=== PATIENT | male | born 1970 | race African-American/Black ===

== ENCOUNTER 2017-05-14 23:41 | Emergency (ER) | payer OTHER ==
[2017-05-15] MEDS ORDERED: KETOROLAC TROMETHAMINE INJ/PF 30 MG/1 ML SDV IV ONE (03:16)
--- NOTE | 2017-05-15 03:22 | ER Document Report ---
HPI - HPI Pain Level: 5 Notes: Patient is a 46-year-old male who presents the ED complaining of left neck pain with radicular symptoms down the left upper extremity into his hand x4 days. Pt states that it started after he strained a muscle in his neck from turning inappropriately. Patient states that his discomfort is a soreness and feels like his muscle is tight in that area. Patient states that he has not lost any strength in his upper extremity. Patient states that standing does help his pain but lying down in certain positions make the pain worse. Patient also notices some added discomfort when he abduction his arm. PMH significant for type 2 DM. No procedures in his neck/back. + smoker. Denies any other elicit drug use. Denies any fever, BELLA, neck stiffness, URI, sore throat, cough, sob, dyspnea, cp, palp, syncope, calero, abd pain, n/v/d, or rash. - ROS Notes: REVIEW OF SYSTEMS: CONSTITUTIONAL : Denies fever, chills, or sweats. Denies recent illness. EENT: Denies eye, ear, throat, or mouth pain or symptoms. Denies nasal or sinus congestion or discharge. Denies throat, tongue, or mouth swelling or difficulty swallowing. CARDIOVASCULAR: Denies chest pain. Denies palpitations or racing or irregular heart beat. Denies ankle edema. RESPIRATORY: Denies cough, cold, or chest congestion. Denies shortness of breath, difficulty breathing, or wheezing. GASTROINTESTINAL: Denies abdominal pain or distention. Denies nausea, vomiting , or diarrhea. Denies blood in vomitus, stools, or per rectum. Denies black, tarry stools. Denies constipation. GENITOURINARY: Denies difficulty urinating, painful urination, burning, frequency, blood in urine, or discharge. MUSCULOSKELETAL: see hpi SKIN: Denies rash, lesions or sores. NEUROLOGICAL: see hpi. Denies confusion or altered mental status. Denies passing out or loss of consciousness. Denies dizziness or lightheadedness. Denies headache. Denies weakness or paralysis or loss of use of either side. Denies problems with gait or speech. ALL OTHER SYSTEMS REVIEWED AND NEGATIVE. Dictation was performed using [email or web address] voice recognition software - DERM Skin Color: Normal, [place] Past Medical History - Social History Smoking Status: Current Every Day Smoker Family History: Reviewed & Not Pertinent - Past Medical History Cardiac Medical History: Denies: Hx Congestive Heart Failure, Hx Heart Attack, Hx Hypertension Pulmonary Medical History: Reports: Hx Asthma Denies: Hx Bronchitis, Hx COPD, Hx Pneumonia, Hx Tuberculosis Neurological Medical History: Denies: Hx Seizures Endocrine Medical History: Reports: Hx Diabetes Mellitus Type 1, Hx Diabetes Mellitus Type 2 Renal/ Medical History: Denies: Hx Benign Prostatic Hyperplasia, Hx End Stage Renal Disease, Hx Kidney Stones, Hx Peritoneal Dialysis GI Medical History: Denies: Hx Cirrhosis, Hx Gastroesophageal Reflux Disease, Hx Ulcer Musculoskeltal Medical History: Denies Hx Arthritis, Denies Hx Multiple Sclerosis Psychiatric Medical History: Reports: Hx Depression Denies: Hx Bipolar Disorder, Hx Schizophrenia Past Surgical History: Reports: Hx Orthopedic Surgery - orthoscopic knee surgery - Immunizations Immunizations up to date: Yes Hx Diphtheria, Pertussis, Tetanus Vaccination: Yes - unk Vertical Provider Document - CONSTITUTIONAL Agree With Documented VS: Yes Notes: PHYSICAL EXAMINATION: GENERAL: Well-appearing, well-nourished and in no acute distress. HEAD: Atraumatic, normocephalic. EYES: Pupils equal round and reactive to light, extraocular movements intact, sclera anicteric, conjunctiva are normal. ENT: EAC clear b/l. TM's intact b/l without erythema, fluid, or perforation. Nares patent and without discharge. oropharynx clear without exudates. No tonsilar hypertrophy or erythema. Moist mucous membranes. No sinus tenderness. NECK: Normal range of motion, supple without lymphadenopathy. No rigidity/ meningismus. No midline tenderness. Spurling negative. + tenderness to the left trapezius mm. + trigger point. LUNGS: Breath sounds clear to auscultation bilaterally and equal. No wheezes rales or rhonchi. HEART: Regular rate and rhythm without murmurs, rubs, gallops. Musculoskeletal: Left UE: FROM to passive/active. Strength 5+/5. + tinel/ phalen left wrist. No bony tenderness. Extremities: No cyanosis, clubbing, or edema b/l. Peripheral pulses 2+. Capillary refill less than 3 seconds. NEUROLOGICAL: Cranial nerves grossly intact. Normal speech, normal gait. Normal sensory, motor exams PSYCH: Normal mood, normal affect. SKIN: Warm, Dry, normal turgor, no rashes or lesions noted. - INFECTION CONTROL TRAVEL OUTSIDE OF THE [place] IN LAST 30 DAYS: No - RESPIRATORY O2 Sat by Pulse Oximetry: 100 Course - Re-evaluation Re-evalutation: 05/15/17 03:20 Patient is an afebrile, well-hydrated, 46-year-old male who presents the ED with muscle spasming and trigger point to the left trapezius muscle along with probable mild carpal tunnel syndrome of the left wrist. Vitals are stable. PE otherwise unremarkable. No imaging warranted at this time based on H&P. Low suspicion for any fracture, meningitis, sepsis. Toradol 15 mg given IM today. I will send him home with a prescription for Voltaren gel, meloxicam, and baclofen to take as directed. Advised conservative measures for symptoms as reviewed discharge. Recheck with your PCM in 2-3 days. Return to the ED with any worsening/concerning symptoms otherwise as reviewed discharge. Consider consult with orthopedics and physical therapy as well. Patient is in agreement. - Vital Signs Vital signs: Temp Pulse Resp BP Pulse Ox 98.5 F 84 20 136/83 H 100 05/14/17 23:58 05/14/17 23:58 05/14/17 23:58 05/14/17 23:58 05/14/17 23:58 Discharge - Discharge Clinical Impression: Muscle spasm, Neuritis Condition: Stable Disposition: HOME, SELF-CARE Instructions: Ice & Elevation ([facility]), Ice Massage ([facility]), Warm Packs ([facility]), Neck Injury (Cervical Strain) ([facility]), Muscle Relaxers ([facility]) Additional Instructions: Ice Ice massage Tylenol/ibuprofen as needed Light stretches daily Strength exercises as able Moist heat and massage may help F/u with your PCP in 2-3 days for a recheck Consider consult(s) with Orthopedics/physical therapy for ongoing/worsening symptoms Return to the ED with any worsening symptoms and/or development of fever, headache, chest pain, palpitations, syncope, shortness of breath, trouble breathing, abdominal pain, n/v/d, blood in stool/urine, loss of control of bowel /bladder, urinary retention, muscle weakness/paralysis, saddle anesthesia, numbness/tingling, or other worsening symptoms that are concerning to you. Prescriptions: Baclofen [Baclofen 10 mg Tablet] 5 mg PO BID PRN #10 tablet PRN Reason: Diclofenac Sodium [Voltaren] 4 gm TP QID PRN #100 gel..gm. PRN Reason: Meloxicam 7.5 mg PO BID PRN #10 tablet PRN Reason: Forms: Elevated Blood Pressure, Smoking Cessation Education Referrals: [facility] [Provider Group] - Follow up as needed [facility] [Provider Group] - Follow up as needed
[2017-05-15 03:47] VITALS: BP 130/85
== END 2017-05-15 03:40 | disposition home or self-care (01) ==
LOC: ER 23:41
DX: M62.830 Muscle spasm of back (principal); M79.2 Neuralgia and neuritis, unspecified; M54.2 Cervicalgia; E11.9 Type 2 diabetes mellitus without complications; F17.200 Nicotine dependence, unspecified, uncomplicated; J45.909 Unspecified asthma, uncomplicated
CPT/HCPCS: 99283; 96374; J1885

== ENCOUNTER 2018-02-16 09:48 | Emergency (ER) | payer SELFPAY ==
[2018-02-16 09:57] VITALS: BP 138/82
[2018-02-16] MEDS ORDERED: IBUPROFEN 800 MG TABLET PO ONE (10:37)
--- NOTE | 2018-02-16 10:42 | ER Document Report ---
ED Extremity Problem, Upper - General Chief Complaint: Shoulder Pain Stated Complaint: LEFT ARM PAIN Time Seen by Provider: 02/16/18 10:04 Mode of Arrival: Ambulatory Information source: Patient Notes: 47-year-old male presents to ED for complaint of left shoulder pain. He states a couple weeks ago he just started hurting. He states he was starting to nod off and jerked causing pain to his left shoulder and upper back. He denies any injury. He denies any numbness or tingling. TRAVEL OUTSIDE OF THE [place] IN LAST 30 DAYS: No - HPI Patient complains to provider of: Shoulder - Left Onset: Other - Couple weeks Recent injury: No Where: Home, Indoors Quality of pain: Achy, Cramping Pain Level: 2 Exacerbated by: Movement, Exertion Relieved by: Rest, Positioning Similar symptoms previously: Yes Recently seen / treated by doctor: No - Related Data Allergies/Adverse Reactions: No Known Allergies Allergy (Verified 02/16/18 09:50) Past Medical History - General Information source: Patient - Social History Smoking Status: Never Smoker Cigarette use (# per day): No Chew tobacco use (# tins/day): No Smoking Education Provided: No Frequency of alcohol use: None Drug Abuse: Marijuana Family History: Reviewed & Not Pertinent Patient has suicidal ideation: No Patient has homicidal ideation: No - Past Medical History Cardiac Medical History: Reports: None Pulmonary Medical History: Reports: Hx Asthma EENT Medical History: Reports: None Neurological Medical History: Reports: None Endocrine Medical History: Reports: Hx Diabetes Mellitus Type 2 Renal/ Medical History: Reports: None GI Medical History: Reports: None Musculoskeltal Medical History: Reports Hx Arthritis, Reports Hx Musculoskeletal Deformity, Reports Hx Musculoskeletal Trauma Skin Medical History: Reports None Psychiatric Medical History: Reports: Hx Depression Traumatic Medical History: Reports: None Infectious Medical History: Reports: None Past Surgical History: Reports: Hx Orthopedic Surgery - orthoscopic knee surgery - Immunizations Immunizations up to date: No Hx Diphtheria, Pertussis, Tetanus Vaccination: No - unk Review of Systems - Review of Systems Constitutional: No symptoms reported EENT: No symptoms reported Cardiovascular: No symptoms reported Respiratory: No symptoms reported Gastrointestinal: No symptoms reported Genitourinary: No symptoms reported Male Genitourinary: No symptoms reported Musculoskeletal: Muscle pain, Muscle stiffness Skin: No symptoms reported Hematologic/Lymphatic: No symptoms reported Neurological/Psychological: No symptoms reported -: Yes All other systems reviewed and negative Physical Exam - Vital signs Vitals: Temp Pulse Resp BP Pulse Ox 97.9 F 73 20 138/82 H 100 02/16/18 09:55 02/16/18 09:55 02/16/18 09:55 02/16/18 09:55 02/16/18 09:55 Interpretation: Normal - General General appearance: Appears well, Alert - HEENT Head: Normocephalic, Atraumatic Eyes: Normal Pupils: PERRL - Respiratory Respiratory status: No respiratory distress Chest status: Nontender Breath sounds: Normal Chest palpation: Normal - Cardiovascular Rhythm: Regular Heart sounds: Normal auscultation Murmur: No - Abdominal Inspection: Normal Distension: No distension Bowel sounds: Normal Tenderness: Nontender Organomegaly: No organomegaly - Back Back: Normal, Nontender - Extremities General upper extremity: Normal inspection, Normal color, Normal ROM, Normal temperature General lower extremity: Normal inspection, Nontender, Normal color, Normal ROM , Normal temperature, Normal weight bearing. No: Augustine's sign Shoulder: Tender. No: Abrasion, Deformity, Dislocation, Ecchymosis, Instability , Laceration, Limited ROM - Neurological Neuro grossly intact: Yes Cognition: Normal Orientation: AAOx4 Kavita Coma Scale Eye Opening: Spontaneous Kavita Coma Scale Verbal: Oriented Kavita Coma Scale Motor: Obeys Commands [place] Coma Scale Total: 15 Speech: Normal Motor strength normal: LUE, RUE, LLE, RLE Sensory: Normal - Psychological Associated symptoms: Normal affect, Normal mood - Skin Skin Temperature: Warm Skin Moisture: Dry Skin Color: Normal Course - Re-evaluation Re-evalutation: 02/16/18 11:15 After performing a Medical Screening Examination, I estimate there is LOW risk for EXPANDING OR RUPTURED ABDOMINAL AORTIC ANEURYSM, CAUDA EQUINA SYNDROME, EPIDURAL MASS LESION, or HERNIATED DISK CAUSING SEVERE SPINAL STENOSIS, thus I consider the discharge disposition reasonable. I have reevaluated this patient multiple times and no significant life threatening changes are noted. The patient and I have discussed the diagnosis and risks, and we agree with discharging home and close follow-up. We also discussed returning to the Emergency Department immediately if new or worsening symptoms occur with the understanding that symptoms and presentations can change. We have discussed the symptoms which are most concerning (e.g., saddle anesthesia, urinary or bowel incontinence or retention, changing or worsening pain) that necessitate immediate return. - Vital Signs Vital signs: Temp Pulse Resp BP Pulse Ox 97.9 F 73 20 138/82 H 100 02/16/18 09:55 02/16/18 09:55 02/16/18 09:55 02/16/18 09:55 02/16/18 09:55 Discharge - Discharge Clinical Impression: Left shoulder pain Qualifiers: Chronicity: unspecified Qualified Code(s): M25.512 - Pain in left shoulder Condition: Stable Disposition: HOME, SELF-CARE Instructions: Family Physicians / Practices Additional Instructions: Myalagia (Muscle Pain) Myalgia is pain in the muscles. We use the word myalgia to describe muscle pain where there's no history of injury, no known muscle disease, and the muscles are normal to examination. Myalgias can be a symptom of an acute illness , such as influenza, hepatitis, or any viral illness, especially with fever. Sometimes the muscle pain comes before any other symptoms. Myalgia can also be an early symptom of inflammatory muscle disease, such as lupus. If myalgia is accompanied by an acute illness that explains the muscle pain , then no further testing needs to be done. When there's no clear reason for the pain, tests may be done to see if there's an inflammatory or other disease of the muscles. The usual treatment for myalgias is anti-inflammatory medication, such as ibuprofen. Muscle aches may be soothed with a heating pad or hot compress. If muscles remain painful for more than a few days, you'll need testing and followup. Return if a muscle becomes swollen, red, or severely painful. Arthralgia Arthralgia is pain in the joints. We use the word arthralgia to describe joint pain where there's no history of injury, no known joint disease, and the joints are normal to examination. Arthralgia can be a symptom of an acute illness, such as influenza, hepatitis, or serum sickness. Sometimes the joint pain comes before any other symptoms. Arthralgia can also be an early symptom of joint disease, such as rheumatoid arthritis or lupus. If arthralgia is accompanied by an acute illness that explains the joint pain, such as mononucleosis, no further testing needs to be done. When there's no clear reason for the pain, tests may be done to see if there's an inflammatory disease of the joints. The usual treatment is anti-inflammatory medication, such as ibuprofen. Joint aches can be soothed with a heating pad or hot compress. If joints remain painful more than a few days, you'll need testing and followup. Return if a joint becomes swollen, red, or severely painful. Anti-Inflammatory Medication You have received a prescription for an antiinflammatory agent. This is an excellent, safe drug for pain control. In addition, it has potent antiinflammatory effects which are beneficial, especially in the treatment of injuries, arthritis, or tendonitis. It's best to take this medicine with food. Persons with ulcer disease or allergy to aspirin should notify their physician of this before taking this drug. Take the medication exactly as prescribed. Don't take additional doses unless instructed to do so by your doctor. If you develop wheezing, shortness of breath, hives, faintness, stomach pain, vomiting, or dark black stools, return for re-evaluation at once. MUSCLE RELAXERS: Muscle relaxing medications are usually prescribed for acute muscle spasm or injury to the neck and back. They are often combined with antiinflammatory pain medication for increased relief. You may stop the muscle relaxer when the pain and stiffness have improved. Start the medication again if spasms recur. Muscle relaxers may cause drowsiness, especially with the first dose. Do not operate machinery or drive while under the effects of the medication. Most muscle relaxers last up to 24 hours. Do not combine the medication with alcohol. ICE PACKS: Apply ice packs frequently against the painful area. Many different schedules are recommended, such as "20 minutes on, 20 minutes off" or "one hour ice, two hours rest." If you need to work, you may need to go longer between ice treatments. You should plan to have the area ice packed AT LEAST one fourth of the time. The ice should be applied over the wrap, tape, or splint, or over a layer of cloth -- not directly against the skin. Some ice bags have a built-in cloth and can be put directly on the skin. WARM PACKS: After approximately two days, apply gentle heat (such as a heating pad or hot water bottle) for about 20 to 30 minutes about every two hours -- at least four times daily. Warmth and elevation will help you make a more rapid recovery , and will ease the pain considerably. Do not use HOT heat, and never apply heat for longer than 30 minutes. The continuous heat can invisibly damage skin and muscles -- even when no burn is seen on the surface. Damaged muscles can make you MORE sore. FOLLOW-UP CARE: If you have been referred to a physician for follow-up care, call the physician s office for an appointment as you were instructed or within the next two days. If you experience worsening or a significant change in your symptoms, notify the physician immediately or return to the Emergency Department at any time for re-evaluation. Prescriptions: Cyclobenzaprine HCl [Flexeril 5 mg Tablet] 5 mg PO TID #10 tablet Forms: Elevated Blood Pressure, Smoking Cessation Education
== END 2018-02-16 10:44 | disposition home or self-care (01) ==
LOC: ER 09:48
DX: M25.512 Pain in left shoulder (principal); E10.9 Type 1 diabetes mellitus without complications; J45.909 Unspecified asthma, uncomplicated
CPT/HCPCS: 99283

== ENCOUNTER 2018-06-01 05:13 | Emergency (ER) | payer SELFPAY ==
[2018-06-01] MEDS ORDERED: NORMAL SALINE 1000 ML 1,000 ML IV ONE (05:41)
--- NOTE | 2018-06-01 05:42 | ER Document Report ---
ED Medical Screen (RME) - General Chief Complaint: High Blood Sugar Stated Complaint: BLOOD SUGAR PROBLEMS Time Seen by Provider: 06/01/18 05:38 Notes: 47-year-old male, chief complaint of frequent urination, intermittent blurry vision, intermittent tingling in his extremities. He has been out of his oral diabetic medication for months, denies any other medications. Denies vomiting, abdominal pain, chest pain, dizziness. TRAVEL OUTSIDE OF THE [place] IN LAST 30 DAYS: No - Related Data Allergies/Adverse Reactions: No Known Allergies Allergy (Verified 02/16/18 09:50) Past Medical History - Past Medical History Cardiac Medical History: Denies: Hx Congestive Heart Failure, Hx Heart Attack, Hx Hypertension Pulmonary Medical History: Reports: Hx Asthma Denies: Hx Bronchitis, Hx COPD, Hx Pneumonia, Hx Tuberculosis Neurological Medical History: Denies: Hx Seizures Endocrine Medical History: Reports: Hx Diabetes Mellitus Type 1, Hx Diabetes Mellitus Type 2 Renal/ Medical History: Denies: Hx Benign Prostatic Hyperplasia, Hx End Stage Renal Disease, Hx Kidney Stones, Hx Peritoneal Dialysis GI Medical History: Denies: Hx Cirrhosis, Hx Gastroesophageal Reflux Disease, Hx Ulcer Musculoskeltal Medical History: Reports Hx Arthritis, Denies Hx Multiple Sclerosis, Reports Hx Musculoskeletal Deformity, Reports Hx Musculoskeletal Trauma Psychiatric Medical History: Reports: Hx Depression Denies: Hx Bipolar Disorder, Hx Schizophrenia Past Surgical History: Reports: Hx Orthopedic Surgery - orthoscopic knee surgery - Immunizations Immunizations up to date: No Hx Diphtheria, Pertussis, Tetanus Vaccination: No - unk Physical Exam - Vital signs Vitals: Temp Pulse Resp BP Pulse Ox 98.3 F 74 20 132/80 H 100 06/01/18 05:19 06/01/18 05:19 06/01/18 05:19 06/01/18 05:19 06/01/18 05:19 - General General appearance: Appears well In distress: None - Cardiovascular Rhythm: Regular. No: Tachycardia Heart sounds: Normal auscultation, S1 appreciated, S2 appreciated Course - Vital Signs Vital signs: Temp Pulse Resp BP Pulse Ox 98.3 F 74 20 132/80 H 100 06/01/18 05:19 06/01/18 05:19 06/01/18 05:19 06/01/18 05:19 06/01/18 05:19 - Laboratory Laboratory results interpreted by me: 06/01/18 05:22 POC Glucose 381 H
[2018-06-01 06:15] LABS: ABSOLUTE EOSINOPHILS # (AUTO) 0.1 10^3/uL (0.0-0.6); ABSOLUTE LYMPHOCYTES (AUTO) 1.3 10^3/uL (0.5-4.7); ABSOLUTE MONOCYTES (AUTO) 0.2 10^3/uL (0.1-1.4); ABSOLUTE NEUT (AUTO) 1.5 10^3/uL (1.7-8.2); BASOPHILS % (AUTO) 0.8 % (0-2); EOSINOPHILS % (AUTO) 2.5 % (0-6); HEMATOCRIT 24.6 % (37.9-51.0); LYMPHOCYTES % (AUTO) 40.2 % (13-45); MEAN CORPUSCULAR HEMOGLOBIN 17.9 pg (27.0-33.4); MEAN CORPUSCULAR HGB CONC 29.9 g/dL (32.0-36.0); PLATELET COUNT 169 10^3/uL (150-450); RED CELL DISTRIBUTION WIDTH 19.5 % (11.5-14.0); SEGMENTED NEUTROPHILS % (AUTO) 49.5 % (42-78); TOTAL CELLS COUNTED % (AUTO) 100 %; WHITE BLOOD COUNT 3.1 10^3/uL (4.0-10.5)
[2018-06-01 06:26] LABS: ALANINE AMINOTRANSFERASE 22 U/L (21-72); ALBUMIN 3.9 g/dL (3.5-5.0); ALKALINE PHOSPHATASE 84 U/L (38-126); ANION GAP 12 (5-19); ASPARTATE AMINO TRANSFERASE 24 U/L (17-59); BILIRUBIN,DIRECT 0.2 mg/dL (0.0-0.4); BILIRUBIN,TOTAL 0.6 mg/dL (0.2-1.3); BLOOD UREA NITROGEN 12 mg/dL (7-20); CALCIUM 9.4 mg/dL (8.4-10.2); CARBON DIOXIDE 22 mmol/L (22-30); CHLORIDE 105 mmol/L (98-107); GLUCOSE 326 mg/dL (75-110); POTASSIUM 4.3 mmol/L (3.6-5.0); SODIUM 138.6 mmol/L (137-145); TOTAL PROTEIN 6.6 g/dL (6.3-8.2)
[2018-06-01] MEDS ORDERED: METFORMIN HCL 500 MG TABLET PO ONE (06:50)
--- NOTE | 2018-06-01 06:52 | ER Document Report ---
ED General <JANET SANTIAGO - Last Filed: 06/01/18 07:00> - General Mode of Arrival: Ambulatory Information source: Patient TRAVEL OUTSIDE OF THE [place] IN LAST 30 DAYS: No <BENITA CAIN - Last Filed: 06/01/18 07:15> - General Chief Complaint: High Blood Sugar Stated Complaint: BLOOD SUGAR PROBLEMS Time Seen by Provider: 06/01/18 05:38 Notes: Patient is a 47 year old male with type 2 diabetes presents to the emergency department complaining of frequent urination and blurry vision. Patient states that he has been urinating frequently over the last few days. He reports not taking his diabetic medication for years due to being unable to afford it. He states he currently does not have a job and lives with his mother. He further states he has not checked his blood sugar in a very long time as well. Patient also mentions intermittent tingling and numbness in his left thumb and right lateral foot. Of significance, patient presented to the emergency department on 07/30/16 complaining of chest pain and was admitted for elevated blood sugar and hypochromic microcytic anemia. Patient left AMA the same day. Patient had labs and a rectal exam during this admission which showed heme-negative stool. These were the last labs performed on the patient. (BENITA CAIN) - Related Data Allergies/Adverse Reactions: No Known Allergies Allergy (Verified 02/16/18 09:50) Past Medical History - General Information source: Patient - Social History Smoking Status: Former Smoker - As of 06/01/2018, states he does not smoke Cigarette use (# per day): No Chew tobacco use (# tins/day): No Frequency of alcohol use: Occasional Drug Abuse: Marijuana Family History: Reviewed & Not Pertinent Patient has suicidal ideation: No Patient has homicidal ideation: No Pulmonary Medical History: Reports: Hx Asthma Endocrine Medical History: Reports: Hx Diabetes Mellitus Type 2 Musculoskeletal Medical History: Reports Hx Arthritis, Reports Hx Musculoskeletal Deformity, Reports Hx Musculoskeletal Trauma Psychiatric Medical History: Reports: Hx Depression Past Surgical History: Reports: Hx Orthopedic Surgery - orthoscopic knee surgery - Immunizations Immunizations up to date: No Hx Diphtheria, Pertussis, Tetanus Vaccination: No - unk <BENITA CAIN - Last Filed: 06/01/18 07:15> Review of Systems - Review of Systems Constitutional: No symptoms reported EENT: See HPI, Blurred vision Cardiovascular: No symptoms reported Respiratory: No symptoms reported Gastrointestinal: No symptoms reported Genitourinary: See HPI, Frequency Male Genitourinary: No symptoms reported Musculoskeletal: See HPI Skin: No symptoms reported Hematologic/Lymphatic: No symptoms reported Neurological/Psychological: See HPI, Numbness, Tingling -: Yes All other systems reviewed and negative <BENITA CAIN - Last Filed: 06/01/18 07:15> Physical Exam <JANET SANTIAGO - Last Filed: 06/01/18 07:00> <BENITA CAIN - Last Filed: 06/01/18 07:15> - Vital signs Vitals: Temp Pulse Resp BP Pulse Ox 98.3 F 74 20 132/80 H 100 06/01/18 05:19 06/01/18 05:19 06/01/18 05:19 06/01/18 05:19 06/01/18 05:19 - Notes Notes: GENERAL: Alert, interacts well. No acute distress. HEAD: Normocephalic, atraumatic. EYES: Pupils equal, round, and reactive to light. Extraocular movements intact. ENT: Oral mucosa moist, tongue midline. NECK: Full range of motion. Supple. Trachea midline. LUNGS: Some wheezing and rhonchi with cough. No respiratory distress. HEART: Regular rate and rhythm. No murmurs, gallops, or rubs. EXTREMITIES: Moves all 4 extremities spontaneously. Positive Tinel's test left hand, patient states this reproduced the tingling sensations. NEUROLOGICAL: Alert and oriented x3. Normal speech. PSYCH: Normal affect, normal mood. SKIN: Warm, dry, normal turgor. No rashes or lesions noted. (BENITA CAIN) Course - Laboratory Result Diagrams: 06/01/18 05:52 06/01/18 05:52 <JANET SANTIAGO - Last Filed: 06/01/18 07:00> - Laboratory Result Diagrams: 06/01/18 05:52 06/01/18 05:52 <BENITA CAIN - Last Filed: 06/01/18 07:15> - Re-evaluation Re-evalutation: 06/01/18 07:03 The patient was counseled on the importance of taking medications. He was counseled on the importance of taking his diabetes seriously and treating it to lessen and or postpone the vascular damage that will inadvertently occur with diabetes. He was counseled about his iron deficiency anemia that was identified on his admission on 07/30/2016, he left AMA at that time and apparently has never followed up with anyone since then. (JANET SANTIAGO) - Vital Signs Vital signs: Temp Pulse Resp BP Pulse Ox 98.3 F 74 20 132/80 H 100 06/01/18 05:19 06/01/18 05:19 06/01/18 05:19 06/01/18 05:19 06/01/18 05:19 - Laboratory Laboratory results interpreted by me: 06/01/18 06/01/18 06/01/18 05:22 05:52 05:52 WBC 3.1 L RBC 4.10 L Hgb 7.4 L Hct 24.6 L MCV 60 L MCH 17.9 L MCHC 29.9 L RDW 19.5 H Absolute Neutrophils 1.5 L Glucose 326 H POC Glucose 381 H Urine Glucose (UA) 06/01/18 06:40 WBC RBC Hgb Hct MCV MCH MCHC RDW Absolute Neutrophils Glucose POC Glucose Urine Glucose (UA) >=500 H Discharge <JANET ASNTIAGO - Last Filed: 06/01/18 07:00> <BENITA CAIN - Last Filed: 06/01/18 07:15> - Discharge Clinical Impression: Hyperglycemia, Medical non-compliance, Carpal tunnel syndrome of left wrist Type 2 diabetes mellitus 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 Not all high blood sugar requires long-term treatment. High blood sugar can be due to medications, , or the stress of illness. (These cases are "borderline diabetes.") If the doctor feels your high blood sugar might get better with time, you may not require treatment now. You will be scheduled for further evaluation. It's very important that you follow through. Uncontrolled high blood sugar leads to early heart disease , strokes, nerve damage, eye damage, and kidney damage. All diabetics should follow a diet designed to control the blood sugar. Overweight diabetics should exercise regularly and lose weight. If this is not sufficient to control the blood sugar, pills or insulin shots are necessary. Younger people who develop diabetes almost always require insulin daily. Home testing of blood sugars or urine sugar is required. Diabetic teaching is available to help you figure insulin doses and monitor the blood sugar. Call the physician if there is faintness, excess sleepiness, or very rapid breathing. If hypoglycemia (LOW blood sugar) develops, symptoms are shakiness, weakness, sweating, and confusion. In this case, you should eat or drink something with sugar at once. Anemia, Iron Deficiency You have anemia (a lower than normal amount of red blood cells). Our tests show it's due to lack of iron in your body. In infants and children, iron deficiency is usually due to lack of iron in the diet. In adults, it's most often caused by blood loss (heavy periods or intestinal bleeding) or by . If the cause of iron deficiency is not clear, we evaluate for hidden intestinal bleeding. Another possible cause is failure to absorb iron properly. Iron-deficiency is treated with iron supplements. Iron pills can upset your stomach and cause constipation. Taking it with food decreases nausea. Expect the stool to become darker (but not black). Taking iron with a juice high in vitamin C (orange juice, tomato juice) increases absorption. You can increase your dietary iron by eating liver, oysters, and lean beef ; wheat germ, peas, and lentils; and molasses, dried prunes, spinach, and broccoli. Contact the doctor at once if you note black or tarry-looking stools, bloody vomiting, shortness of breath, chest pain, or faintness. Carpal Tunnel Syndrome Your examination suggests carpal tunnel syndrome. This syndrome is due to pressure on a nerve in the wrist. The pressure may be caused by an old injury, hard work using the wrist, work involving repeated motions of the hand, wrist positions that keep pressure on the joint, or arthritis in the wrist. Typical symptoms are tingling, numbness, and pain in the palm, thumb, index and middle fingers, and one side of the ring finger. Often a splint, ice packs, and antiinflammatory medication make the symptoms go away. If the physician feels that your problem is chronic, you will be referred to a specialist for further care. If symptoms do not go away, carpal tunnel syndrome may require surgery. You should call the doctor if pain increases, if you develop difficulty using the thumb or fingers, or if major swelling occurs. Take the medication as prescribed for your diabetes and anemia. Follow-up with a local medical doctor in the next 1-2 weeks to provide regular medical care for your diabetes, iron deficiency anemia and further evaluation of the numbness in your hand and foot. RETURN TO THE EMERGENCY ROOM IF ANY NEW OR WORSENING SYMPTOMS. Prescriptions: Ferrous Sulfate 325 mg PO DAILY #100 tablet Metformin HCl 850 mg PO BID #60 tablet Scribe Attestation: 06/01/18 07:01 I personally performed the services described in the documentation, reviewed and edited the documentation which was dictated to the scribe in my presence, and it accurately records my words and actions. (JANET SANTIAGO) Scribe Documentation - Scribe Written by Daisy:: Daisy Zepeda, 06/01/2018 07:15 acting as scribe for :: Shabnam <BENITA CAIN - Last Filed: 06/01/18 07:15>
[2018-06-01 06:53] LABS: HEMOGLOBIN 7.4 g/dL (13.5-17.0)
[2018-06-01 06:59] LABS: APPEARANCE,URINE CLEAR; BILIRUBIN,URINE NEGATIVE (NEGATIVE); COLOR,URINE STRAW; GLUCOSE, URINE >=500 mg/dL (NEGATIVE); KETONES,URINE NEGATIVE (NEGATIVE); LEUKOCYTE ESTERASE,URINE NEGATIVE (NEGATIVE); NITRITE,URINE NEGATIVE (NEGATIVE); PROTEIN,URINE NEGATIVE (NEGATIVE); URINE SPECIFIC GRAVITY 1.015; UROBILINOGEN,URINE NEGATIVE mg/dL (<2.0)
[2018-06-01 06:59] LABS: ANISOCYTOSIS 2+; HYPOCHROMASIA 1+; OVALOCYTES SLIGHT; PLATELET COMMENT ADEQUATE; POIKILOCYTOSIS 1+; POLYCHROMASIA SLIGHT; SCHISTOCYTES SLIGHT; TARGET CELLS SLIGHT
[2018-06-01 07:13] VITALS: BP 125/81
[2018-06-01 11:24] LABS: MEAN CORPUSCULAR VOLUME 60 fl (80-97)
[2018-06-01 14:21] LABS: PATH REVIEW PATHOLOGIST REVIEWED
== END 2018-06-01 07:12 | disposition home or self-care (01) ==
LOC: ER 05:13
DX: E11.65 Type 2 diabetes mellitus with hyperglycemia (principal); G56.02 Carpal tunnel syndrome, left upper limb; D50.9 Iron deficiency anemia, unspecified; Z91.14 Patient's other noncompliance with medication regimen
CPT/HCPCS: 99285; 96360; 36415; 82962; 85025; 80053; 81001; J7030

== ENCOUNTER 2018-09-23 09:39 | Emergency (ER) | payer SELFPAY ==
[2018-09-23] MEDS ORDERED: NORMAL SALINE 1000 ML 1,000 ML IV ONE (10:27)
[2018-09-23] MEDS ORDERED: METFORMIN HCL 500 MG TABLET PO ONE ×2 (10:27→11:15)
--- NOTE | 2018-09-23 10:30 | ER Document Report ---
ED Blood Sugar Problem - General Chief Complaint: High Blood Sugar Stated Complaint: POSSIBLE HIGH SUGAR Time Seen by Provider: 09/23/18 10:20 TRAVEL OUTSIDE OF THE [place] IN LAST 30 DAYS: No - HPI Notes: Patient is a 48-year-old male that presents to the emergency department for chief complaint of hyperglycemia. Patient states he has been out of his metformin for the last week. His last prescription came from the emergency room. He states since May he has not been able to see a primary care provider because of incarceration and. Today he reports that he felt his glucose was getting higher because his vision was getting blurry and his peripheral neuropathy was increasing. He reports a stinging burning sensation in his feet that is worse with ambulation. He has not taken [id number] pain medication. He denies any nausea, vomiting, chest pain, shortness of breath, fevers or chills. Past Medical History: Diabetes Past Surgical History: Reviewed in chart Social History: Daily tobacco. Denies drugs and alcohol Family History: Reviewed and noncontributory for presenting illness Allergies: Reviewed, see documented allergy list. REVIEW OF SYSTEMS: CONSTITUTIONAL : No fever No chills No diaphoresis No recent illness EENT: vision changes No congestion No sore throat CARDIOVASCULAR: No chest pain No palpitations RESPIRATORY: No shortness of breath No cough No difficulty breathing GASTROINTESTINAL: No abdominal pain No nausea No vomiting No diarrhea GENITOURINARY: No dysuria No hematuria No difficulty urinating MUSCULOSKELETAL: No back pain No arm pain SKIN: No rashes No lesions LYMPHATIC: No swollen, enlarged glands. NEUROLOGICAL: No lightheadedness No headache No weakness No paresthesias PSYCHIATRIC: No anxiety No depression PHYSICAL EXAMINATION: Vital signs reviewed, nursing noted reviewed. GENERAL: Well-appearing, well-nourished and in no acute distress. HEAD: Atraumatic, normocephalic. EYES: Eyes appear normal, extraocular movements intact, sclera anicteric, conjunctiva are normal. ENT: nares patent, oropharynx clear without exudates. Mildly dry mucous membranes. NECK: Normal range of motion, supple without lymphadenopathy LUNGS: Breath sounds clear to auscultation bilaterally and equal. No wheezes rales or rhonchi. HEART: Regular rate and rhythm without murmurs ABDOMEN: Soft, nontender, normoactive bowel sounds. No rebound, guarding, or rigidity. No masses appreciated. EXTREMITIES: Nontender, good range of motion, no pitting or edema. NEUROLOGICAL: No focal neurological deficits. Moves all extremities spontaneously Motor and sensory grossly intact on exam. PSYCH: Normal mood, normal affect. SKIN: Warm, Dry, normal turgor, no rashes or lesions noted on exposed skin - Related Data Allergies/Adverse Reactions: No Known Allergies Allergy (Verified 09/23/18 10:26) Past Medical History - Social History Smoking Status: Never Smoker Chew tobacco use (# tins/day): Yes Frequency of alcohol use: None Drug Abuse: Marijuana Family History: Reviewed & Not Pertinent Patient has suicidal ideation: No Patient has homicidal ideation: No - Past Medical History Cardiac Medical History: Denies: Hx Congestive Heart Failure, Hx Heart Attack, Hx Hypertension Pulmonary Medical History: Reports: Hx Asthma Denies: Hx Bronchitis, Hx COPD, Hx Pneumonia, Hx Tuberculosis Neurological Medical History: Denies: Hx Seizures Endocrine Medical History: Reports: Hx Diabetes Mellitus Type 1, Hx Diabetes Mellitus Type 2 Renal/ Medical History: Denies: Hx Benign Prostatic Hyperplasia, Hx End Stage Renal Disease, Hx Kidney Stones, Hx Peritoneal Dialysis GI Medical History: Denies: Hx Cirrhosis, Hx Gastroesophageal Reflux Disease, Hx Ulcer Musculoskeletal Medical History: Reports Hx Arthritis, Denies Hx Multiple Sclerosis, Reports Hx Musculoskeletal Deformity, Reports Hx Musculoskeletal Trauma Psychiatric Medical History: Reports: Hx Depression Denies: Hx Bipolar Disorder, Hx Schizophrenia Past Surgical History: Reports: Hx Orthopedic Surgery - orthoscopic knee surgery - Immunizations Immunizations up to date: No Hx Diphtheria, Pertussis, Tetanus Vaccination: No - unk Physical Exam - Vital signs Vitals: Temp Pulse Resp Pulse Ox 98.0 F 74 16 97 09/23/18 09:45 09/23/18 09:45 09/23/18 09:45 09/23/18 09:45 Course - Re-evaluation Re-evalutation: 09/23/18 10:29 Vitals reviewed. Nursing notes reviewed. Patient is well-appearing in no acute distress. He has a [id number] glucose of 315. Patient given metformin and IV hydration for his hyperglycemia. Lab work obtained to evaluate for electrolyte derangements and DKA. 09/23/18 11:56 Patient's lab work shows no electrolyte derangements. He has normal renal function. His glucose was improved after metformin and IV hydration. He is not in DKA. He does have a low WBC count which he has had previously. He has no fevers or other signs of infection. He will be discharged home in stable condition. He was provided a metformin prescription but was encouraged to follow closely [facility] for further management of his diabetes. He was also referred to ophthalmology for diabetic eye exam. Patient stable at discharge. Laboratory 09/23/18 09/23/18 09/23/18 09:47 10:48 10:50 WBC 2.3 L RBC 4.42 Hgb 12.6 L Hct 37.6 L MCV 85 MCH 28.5 MCHC 33.6 RDW 19.8 H Plt Count 171 Seg Neutrophils % 45.6 Lymphocytes % 30.8 Monocytes % 16.6 H Eosinophils % 6.2 H Basophils % 0.8 Absolute Neutrophils 1.0 L Absolute Lymphocytes 0.7 Absolute Monocytes 0.4 Absolute Eosinophils 0.1 Absolute Basophils 0.0 Platelet Comment ADEQUATE Polychromasia SLIGHT Poikilocytosis 1+ Anisocytosis 2+ Tear Drop Cells SLIGHT Ovalocytes SLIGHT VBG pH VBG pCO2 VBG HCO3 VBG Base Excess Sodium Potassium Chloride Carbon Dioxide Anion Gap BUN Creatinine Est GFR ( Amer) Est GFR (Non-Af Amer) Glucose POC Glucose 315 H 274 H Calcium 09/23/18 09/23/18 10:50 10:50 WBC RBC Hgb Hct MCV MCH MCHC RDW Plt Count Seg Neutrophils % Lymphocytes % Monocytes % Eosinophils % Basophils % Absolute Neutrophils Absolute Lymphocytes Absolute Monocytes Absolute Eosinophils Absolute Basophils Platelet Comment Polychromasia Poikilocytosis Anisocytosis Tear Drop Cells Ovalocytes VBG pH 7.39 VBG pCO2 45.0 VBG HCO3 26.6 VBG Base Excess 1.3 Sodium 137.1 Potassium 4.2 Chloride 104 Carbon Dioxide 27 Anion Gap 6 BUN 10 Creatinine 0.75 Est GFR ( Amer) > 60 Est GFR (Non-Af Amer) > 60 Glucose 249 H POC Glucose Calcium 9.4 - Vital Signs Vital signs: Temp Pulse Resp BP Pulse Ox 98.0 F 74 16 97 09/23/18 09:45 09/23/18 09:45 09/23/18 09:45 09/23/18 09:45 - Laboratory Result Diagrams: 09/23/18 10:50 09/23/18 10:50 Laboratory results interpreted by me: 09/23/18 09/23/18 09/23/18 09:47 10:48 10:50 WBC 2.3 L Hgb 12.6 L Hct 37.6 L RDW 19.8 H Monocytes % 16.6 H Eosinophils % 6.2 H Absolute Neutrophils 1.0 L Glucose POC Glucose 315 H 274 H 09/23/18 10:50 WBC Hgb Hct RDW Monocytes % Eosinophils % Absolute Neutrophils Glucose 249 H POC Glucose Discharge - Discharge Clinical Impression: Hyperglycemia, Noncompliance with diabetes treatment Condition: Stable Disposition: HOME, SELF-CARE Instructions: Diabetes ([facility]), Glucophage ([facility]) Additional Instructions: Please return to the emergency department if you have any worsening, or concern of your symptoms. Please return to the emergency department if you develop chest pain, difficulty breathing, severe abdominal pain, or ongoing vomiting. Please follow-up with your primary care physician in 2-3 days and any other recommended physicians. If prescribed, take all medications as directed. If you have any questions or concerns do not hesitate to return the emergency department for evaluation. No refills have been given on your metformin today. It is important that you call [facility] to follow-up and obtain further care of your diabetes. Prescriptions: Metformin HCl [Glucophage 500 mg Tablet] 1,000 mg PO BID #60 tablet Referrals: ZAIDA BREWER MD [ACTIVE STAFF] - Follow up in 3-5 days [facility] [Provider Group] - Follow up in 3-5 days
[2018-09-23 11:21] LABS: VENOUS BLOOD BASE EXCESS 1.3 mmol/L; VENOUS BLOOD HCO3 26.6 mmol/L (20-32); VENOUS BLOOD PH 7.39 (7.30-7.42)
[2018-09-23 11:25] LABS: ABSOLUTE EOSINOPHILS # (AUTO) 0.1 10^3/uL (0.0-0.6); ABSOLUTE LYMPHOCYTES (AUTO) 0.7 10^3/uL (0.5-4.7); ABSOLUTE MONOCYTES (AUTO) 0.4 10^3/uL (0.1-1.4); BASOPHILS % (AUTO) 0.8 % (0-2); EOSINOPHILS % (AUTO) 6.2 % (0-6); HEMATOCRIT 37.6 % (37.9-51.0); HEMOGLOBIN 12.6 g/dL (13.5-17.0); LYMPHOCYTES % (AUTO) 30.8 % (13-45); MEAN CORPUSCULAR HEMOGLOBIN 28.5 pg (27.0-33.4); MEAN CORPUSCULAR HGB CONC 33.6 g/dL (32.0-36.0); MEAN CORPUSCULAR VOLUME 85 fl (80-97); MONOCYTES % (AUTO) 16.6 % (3-13); PLATELET COUNT 171 10^3/uL (150-450); RED BLOOD COUNT 4.42 10^6/uL (4.35-5.55); RED CELL DISTRIBUTION WIDTH 19.8 % (11.5-14.0); SEGMENTED NEUTROPHILS % (AUTO) 45.6 % (42-78); TOTAL CELLS COUNTED % (AUTO) 100 %; WHITE BLOOD COUNT 2.3 10^3/uL (4.0-10.5)
[2018-09-23] MEDS ORDERED: METFORMIN HCL 500 MG TABLET ONE (11:39)
[2018-09-23 11:41] LABS: ANION GAP 6 (5-19); BLOOD UREA NITROGEN 10 mg/dL (7-20); CALCIUM 9.4 mg/dL (8.4-10.2); CARBON DIOXIDE 27 mmol/L (22-30); CHLORIDE 104 mmol/L (98-107); GLUCOSE 249 mg/dL (75-110); POTASSIUM 4.2 mmol/L (3.6-5.0); SODIUM 137.1 mmol/L (137-145)
[2018-09-23 11:53] LABS: ANISOCYTOSIS 2+; POIKILOCYTOSIS 1+; POLYCHROMASIA SLIGHT
[2018-09-23 11:54] LABS: OVALOCYTES SLIGHT; PLATELET COMMENT ADEQUATE; TEAR DROP CELLS SLIGHT
[2018-09-23 13:29] VITALS: BP 151/85
== END 2018-09-23 13:39 | disposition home or self-care (01) ==
LOC: ER 09:39
DX: E11.65 Type 2 diabetes mellitus with hyperglycemia (principal); E11.42 Type 2 diabetes mellitus with diabetic polyneuropathy; T38.3X6A Underdosing of insulin and oral hypoglycemic [antidiabetic] drugs, initial encounter; Z91.128 Patient's intentional underdosing of medication regimen for other reason; Z91.14 Patient's other noncompliance with medication regimen; H53.8 Other visual disturbances; J45.909 Unspecified asthma, uncomplicated; F12.10 Cannabis abuse, uncomplicated; Z72.0 Tobacco use
CPT/HCPCS: 99283; 36415; 82962; 85025; 80048; 82803; J7030

== ENCOUNTER 2020-10-23 16:41 | Emergency (ER) | payer SELFPAY ==
--- NOTE | 2020-10-23 16:57 | ER Document Report ---
ED Medical Screen (RME) - General Chief Complaint: Facial Swelling Stated Complaint: FACIAL SWELLING Time Seen by Provider: 10/23/20 16:46 Primary Care Provider: [facility] [Primary Care Provider] - Follow up as needed Mode of Arrival: Ambulatory Information source: Patient Notes: 50-year-old male presented to ED for left-sided facial swelling. He states he did have a bump inside of his left nostril that he picked him picked out last night. He states he did cause himself a bloody nose at a point and had a scab in his nose. He now has swelling to the left side of his face. He is alert oriented respirations regular nonlabored. He does have a history of diabetes and noncompliance. I have greeted and performed a rapid initial assessment of this patient. A comprehensive ED assessment and evaluation of the patient, analysis of test results and completion of medical decision making process will be conducted by an additional ED providers. TRAVEL OUTSIDE OF THE [place] IN LAST 30 DAYS: No - Related Data Allergies/Adverse Reactions: No Known Allergies Allergy (Verified 09/23/18 10:26) Past Medical History - Past Medical History Cardiac Medical History: Denies: Hx Congestive Heart Failure, Hx Heart Attack, Hx Hypertension Pulmonary Medical History: Reports: Hx Asthma Denies: Hx Bronchitis, Hx COPD, Hx Pneumonia, Hx Tuberculosis Neurological Medical History: Denies: Hx Seizures, Hx Parkinson's Disease Endocrine Medical History: Reports: Hx Diabetes Mellitus Type 1, Hx Diabetes Mellitus Type 2 Renal/ Medical History: Denies: Hx Benign Prostatic Hyperplasia, Hx End Stage Renal Disease, Hx Kidney Stones, Hx Peritoneal Dialysis GI Medical History: Denies: Hx Cirrhosis, Hx Gastroesophageal Reflux Disease, Hx Ulcer Musculoskeltal Medical History: Reports Hx Arthritis, Denies Hx Multiple Sclerosis, Reports Hx Musculoskeletal Deformity, Reports Hx Musculoskeletal Trauma Psychiatric Medical History: Reports: Hx Depression Denies: Hx Bipolar Disorder, Hx Schizophrenia Past Surgical History: Reports: Hx Orthopedic Surgery - orthoscopic knee surgery - Immunizations Immunizations up to date: No Hx Diphtheria, Pertussis, Tetanus Vaccination: No - unk Physical Exam - Vital signs Vitals: Temp Pulse Resp BP Pulse Ox 99.8 F 79 16 156/94 H 99 10/23/20 16:49 10/23/20 16:49 10/23/20 16:49 10/23/20 16:49 10/23/20 16:49 Course - Vital Signs Vital signs: Temp Pulse Resp BP Pulse Ox 99.8 F 79 16 156/94 H 99 10/23/20 16:49 10/23/20 16:49 10/23/20 16:49 10/23/20 16:49 10/23/20 16:49 Doctor's Discharge - Discharge Referrals: [facility] [Primary Care Provider] - Follow up as needed
[2020-10-23 17:54] LABS: ABSOLUTE LYMPHOCYTES (AUTO) 0.8 10^3/uL (0.5-4.7); ABSOLUTE MONOCYTES (AUTO) 0.5 10^3/uL (0.1-1.4); BASOPHILS % (AUTO) 0.3 % (0-2); EOSINOPHILS % (AUTO) 0.9 % (0-6); HEMATOCRIT 37.4 % (37.9-51.0); HEMOGLOBIN 13.3 g/dL (13.5-17.0); LYMPHOCYTES % (AUTO) 15.5 % (13-45); MEAN CORPUSCULAR HEMOGLOBIN 32.5 pg (27.0-33.4); MEAN CORPUSCULAR HGB CONC 35.6 g/dL (32.0-36.0); MEAN CORPUSCULAR VOLUME 91 fl (80-97); MONOCYTES % (AUTO) 8.4 % (3-13); PLATELET COUNT 134 10^3/uL (150-450); RED CELL DISTRIBUTION WIDTH 12.9 % (11.5-14.0); SEGMENTED NEUTROPHILS % (AUTO) 74.9 % (42-78); TOTAL CELLS COUNTED % (AUTO) 100 %; WHITE BLOOD COUNT 5.4 10^3/uL (4.0-10.5)
--- NOTE | 2020-10-23 17:59 | ER Document Report ---
ED General - General Chief Complaint: Facial Swelling Stated Complaint: FACIAL SWELLING Time Seen by Provider: 10/23/20 16:46 Primary Care Provider: [facility] [Primary Care Provider] - Follow up as needed Mode of Arrival: Ambulatory TRAVEL OUTSIDE OF THE [place] IN LAST 30 DAYS: No - HPI Notes: 50-year-old male presents with facial swelling. Patient states that yesterday he noticed a pimple inside his left nostril, he picked it, states there was a thick white material that came out. Patient states that he woke up today and noticed that the left side of his face was swollen. No further drainage from the nose. He has been able to eat and drink today without issue. No issues swallowing. He does note that having the heat on in the house causes him to have a dry nose and will intermittently bleed, especially if he picks his nose. He also admits to smoking "a lot of weed". No fever or chills. Patient states that he is unable to afford his Metformin and has not taken it in quite some time, he knows that his blood sugars are high. - Related Data Allergies/Adverse Reactions: No Known Allergies Allergy (Verified 09/23/18 10:26) Past Medical History - General Information source: Patient - Social History Smoking Status: Current Every Day Smoker Frequency of alcohol use: None Drug Abuse: Marijuana Family History: Reviewed & Not Pertinent - Past Medical History Cardiac Medical History: Denies: Hx Congestive Heart Failure, Hx Heart Attack, Hx Hypertension Pulmonary Medical History: Reports: Hx Asthma Denies: Hx Bronchitis, Hx COPD, Hx Pneumonia, Hx Tuberculosis Neurological Medical History: Denies: Hx Seizures, Hx Parkinson's Disease Endocrine Medical History: Reports: Hx Diabetes Mellitus Type 1, Hx Diabetes Mellitus Type 2 Renal/ Medical History: Denies: Hx Benign Prostatic Hyperplasia, Hx End Stage Renal Disease, Hx Kidney Stones, Hx Peritoneal Dialysis GI Medical History: Denies: Hx Cirrhosis, Hx Gastroesophageal Reflux Disease, Hx Ulcer Musculoskeletal Medical History: Reports Hx Arthritis, Denies Hx Multiple Sclerosis, Reports Hx Musculoskeletal Deformity, Reports Hx Musculoskeletal Tr auma Psychiatric Medical History: Reports: Hx Depression Denies: Hx Bipolar Disorder, Hx Schizophrenia Past Surgical History: Reports: Hx Orthopedic Surgery - orthoscopic knee surgery - Immunizations Immunizations up to date: No Hx Diphtheria, Pertussis, Tetanus Vaccination: No - unk Review of Systems - Review of Systems Constitutional: denies: Fever EENT: See HPI Cardiovascular: No symptoms reported Respiratory: No symptoms reported Gastrointestinal: No symptoms reported Genitourinary: No symptoms reported Male Genitourinary: No symptoms reported Musculoskeletal: No symptoms reported Skin: Dryness Hematologic/Lymphatic: No symptoms reported Neurological/Psychological: No symptoms reported Physical Exam - Vital signs Vitals: Temp Pulse Resp BP Pulse Ox 99.8 F 79 16 156/94 H 99 10/23/20 16:49 10/23/20 16:49 10/23/20 16:49 10/23/20 16:49 10/23/20 16:49 - General General appearance: Appears well, Alert In distress: None - HEENT Head: Normocephalic, Atraumatic Extraocular movements intact: Yes Pupils: PERRL Mucous membranes: Moist Neck: Supple. No: Lymphadenopathy Notes: Do not appreciate marked facial swelling of the left side, very possible small amount towards the base of her nose/upper lip. There are no lesions inside the nose. No erythema. No tenderness. Managing secretions. No elevation of floor of mouth. No trismus. - Respiratory Breath sounds: Normal - Cardiovascular Rhythm: Regular Heart sounds: Normal auscultation - Abdominal Inspection: No: Obese - Extremities General upper extremity: Normal ROM General lower extremity: Normal ROM - Neurological Neuro grossly intact: Yes Cognition: Normal Orientation: AAOx4 - Psychological Associated symptoms: Normal affect - Skin Skin Temperature: Warm Course - Re-evaluation Re-evalutation: 50-year-old male here for left facial swelling after picking a reported pimple inside his left nostril. On exam there is a minimal amount of facial swelling, do not appreciate marked swelling. No erythema or tenderness. No airway con cerns. Have ordered an oral dose of Bactrim to cover given that he is a diabetic. Suspect it is inflammatory reaction, possible early cellulitis. Would not have a concern for a deep abscess at this time. Patient also expresses concern over nasal dryness, I discussed with him applying Vaseline in side his nose and counseled on smoking cessation. Labs including EKG and a CT face were ordered through the triage process. 10/23/20 19:14 CT face demonstrates subcutaneous soft tissue swelling, cannot exclude a small abscess No leukocytosis or left shift. Mild hyponatremia, suspect pseudodue to his elevated glucose. Electrolytes otherwise within normal limits. Creatinine within normal limits. Glucose 392, received 1L of fluid, noncompliant with Metformin, will recheck after fluids. Bicarb within normal limits. No anion gap. Urine not suggestive of UTI. 10/23/20 19:38 Remains hyperglycemia, is likely due to his medical noncompliance. I have sent Metformin along with Bactrim to [facility]. He was updated that these are on the free list. Return precautions given, stable time of discharge. - Vital Signs Vital signs: Temp Pulse Resp BP Pulse Ox 99.8 F 79 18 156/94 H 99 10/23/20 16:49 10/23/20 16:49 10/23/20 17:13 10/23/20 16:49 10/23/20 17:13 - Laboratory Results Result Diagrams: 10/23/20 17:27 10/23/20 17:27 Laboratory Results Interpreted: 10/23/20 10/23/20 10/23/20 17:27 17:27 17:47 RBC 4.10 L Hgb 13.3 L Hct 37.4 L Plt Count 134 L Sodium 130.9 L Anion Gap 3 L Glucose 392 H Total Bilirubin 1.8 H Urine Glucose (UA) >=500 H Urine Ketones TRACE H Critical Laboratory Results Reviewed: No Critical Results - Radiology Results Critical Radiology Results Reviewed: No Critical Results - EKG Interpretation by Me Additional EKG results interpreted by me: EKG as interpreted by me. Sinus rhythm, rate 81. Narrow QRS, QTC within normal limits. Nonspecific ST changes. No ST segment elevation. Discharge - Discharge Clinical Impression: Facial infection Hyperglycemia due to type 2 diabetes mellitus Qualifiers: Diabetes mellitus termite exterminator helper insulin use: without termite exterminator helper use Qualified Code(s): E11.65 - Type 2 diabetes mellitus with hyperglycemia Disposition: HOME, SELF-CARE Additional Instructions: Please fill your medications at [facility], Bactrim and Metformin are on the free list. Please also discuss with your doctor continuing to send your prescriptions there. Return to the emergency department for any concerning worsening symptoms. Prescriptions: Sulfamethoxazole/Trimethoprim [Bactrim Ds Tablet] 1 tab PO BID 5 Days #10 tablet Metformin HCl [Glucophage 500 mg Tablet] 500 mg PO BID #60 tablet Referrals: [facility] [Primary Care Provider] - Follow up as needed
--- NOTE | 2020-10-23 18:01 | EKG REPORT ---
SEVERITY:- BORDERLINE ECG - SINUS RHYTHM BORDERLINE T ABNORMALITIES, INFERIOR LEADS : Confirmed by: Olivier Wilson MD 23-Oct-2020 18:00:57
[2020-10-23] MEDS ORDERED: SULFAMETHOXAZOLE/TRIMETHOPRIM 800-160 MG TABLET PO ONE (18:12)
[2020-10-23 18:13] LABS: ALKALINE PHOSPHATASE 124 U/L (38-126); ASPARTATE AMINO TRANSFERASE 37 U/L (17-59); BILIRUBIN,DIRECT 0.3 mg/dL (0.0-0.4); BILIRUBIN,TOTAL 1.8 mg/dL (0.2-1.3); BLOOD UREA NITROGEN 9 mg/dL (7-20); CALCIUM 9.4 mg/dL (8.4-10.2); CARBON DIOXIDE 30 mmol/L (22-30); CHLORIDE 98 mmol/L (98-107); GLUCOSE 392 mg/dL (75-110); POTASSIUM 4.2 mmol/L (3.6-5.0); TOTAL PROTEIN 6.8 g/dL (6.3-8.2)
[2020-10-23 18:19] LABS: APPEARANCE,URINE CLEAR; BILIRUBIN,URINE NEGATIVE (NEGATIVE); COLOR,URINE STRAW; GLUCOSE, URINE >=500 mg/dL (NEGATIVE); KETONES,URINE TRACE mg/dL (NEGATIVE); LEUKOCYTE ESTERASE,URINE NEGATIVE (NEGATIVE); NITRITE,URINE NEGATIVE (NEGATIVE); PROTEIN,URINE NEGATIVE (NEGATIVE); UROBILINOGEN,URINE NEGATIVE mg/dL (<2.0)
[2020-10-23 18:20] LABS: ANION GAP 3 (5-19)
[2020-10-23] MEDS ORDERED: RINGERS SOLUTION,LACTATED 1,000 ML IV ONE (18:21)
--- NOTE | 2020-10-23 18:59 | RADIOLOGY REPORT (SQ) ---
EXAM DESCRIPTION: CT FACIAL AREA WITH IMAGES COMPLETED DATE/TIME: 10/23/2020 5:38 pm REASON FOR STUDY: Left-sided facial pain and swelling possible cellu COMPARISON: 2011 TECHNIQUE: Post contrast images through the facial bones and orbits windowed for bone and soft tissu e. Additional coronal and sagittal reconstructed images reviewed. All images stored on PACS. All CT scanners at this facility use dose modulation, iterative reconstruction, and/or weight based d osing when appropriate to reduce radiation dose to as low as reasonably achievable (ALARA). [facility]: Dose Right [facility]: CareDose [facility]: Dose Right [facility]: Teradose 4D [facility]: [facility] CONTRAST TYPE AND DOSE: contrast/concentration: Isovue 350.00 mmol/ml; Total Contrast Delivered: 75. 0 ml; Total Saline Delivered: 38.5 ml RENAL FUNCTION: BUN 8 creatinine 0.79 RADIATION DOSE: CT Rad equipment meets quality standard of care and radiation dose reduction techniq ues were employed. CTDIvol: 30.4 mGy. DLP: 654 mGy-cm. . LIMITATIONS: None. FINDINGS: FACIAL BONES: No fracture or bone lesion. ORBITS: Intact. No fracture. Symmetric intact globes and retroorbital soft tissues. PARANASAL SINUSES: Clear. No significant mucosal thickening, mass or fluid. No nasal polyps. Maxilla ry sinus outlets are patent. SOFT TISSUES: There is a small fluid collection in the posterior aspect of the left side of the nose just anterior to the maxilla. This measures about 10 mm. There is soft tissue swelling in the left cheek. INFERIOR BRAIN: Limited view. No acute findings. OTHER: No other significant finding. IMPRESSION: Cannot exclude a small abscess in the soft tissues just anterior to the maxilla on the l eft as described. See image 36 series 3. There is some subcutaneous soft tissue swelling in the lef t cheek as well. TECHNICAL DOCUMENTATION: JOB ID: [id number] Quality ID # [id number]: Final reports with documentation of one or more dose reduction techniques (e.g., Au tomated exposure control, adjustment of the mA and/or kV according to patient size, use of iterative reconstruction technique) 2010 [employer]- All Rights Reserved Reading location - IP/workstation name: [email or web address]
[2020-10-23 20:24] VITALS: BP 142/93
== END 2020-10-23 20:24 | disposition home or self-care (01) ==
LOC: ER 16:41
DX: L08.89 Other specified local infections of the skin and subcutaneous tissue (principal); R22.0 Localized swelling, mass and lump, head; E11.65 Type 2 diabetes mellitus with hyperglycemia; F17.200 Nicotine dependence, unspecified, uncomplicated
CPT/HCPCS: 93005; 99285; 96360; 36415; 87040; 87086; 82962; 87070; 81001; 70487; 93010; J7120; 87150

== ENCOUNTER → 2020-10-23 | Outpatient (CLI) | payer OTHER ==
[2020-10-23 11:26] LABS: ABSOLUTE LYMPHOCYTES (AUTO) 0.7 10^3/uL (0.5-4.7); ABSOLUTE MONOCYTES (AUTO) 0.5 10^3/uL (0.1-1.4); ABSOLUTE NEUT (AUTO) 4.3 10^3/uL (1.7-8.2); BASOPHILS % (AUTO) 0.3 % (0-2); EOSINOPHILS % (AUTO) 0.5 % (0-6); HEMOGLOBIN 13.4 g/dL (13.5-17.0); MEAN CORPUSCULAR HEMOGLOBIN 32.1 pg (27.0-33.4); MEAN CORPUSCULAR HGB CONC 35.4 g/dL (32.0-36.0); MEAN CORPUSCULAR VOLUME 91 fl (80-97); MONOCYTES % (AUTO) 8.6 % (3-13); PLATELET COUNT 124 10^3/uL (150-450); RED BLOOD COUNT 4.19 10^6/uL (4.35-5.55); RED CELL DISTRIBUTION WIDTH 12.8 % (11.5-14.0); SEGMENTED NEUTROPHILS % (AUTO) 77.6 % (42-78); TOTAL CELLS COUNTED % (AUTO) 100 %; WHITE BLOOD COUNT 5.5 10^3/uL (4.0-10.5)
[2020-10-23 11:34] LABS: APPEARANCE,URINE CLEAR; BILIRUBIN,URINE NEGATIVE (NEGATIVE); COLOR,URINE STRAW; GLUCOSE, URINE >=500 mg/dL (NEGATIVE); KETONES,URINE NEGATIVE (NEGATIVE); LEUKOCYTE ESTERASE,URINE NEGATIVE (NEGATIVE); NITRITE,URINE NEGATIVE (NEGATIVE); PROTEIN,URINE NEGATIVE (NEGATIVE); URINE SPECIFIC GRAVITY 1.022; UROBILINOGEN,URINE NEGATIVE mg/dL (<2.0)
[2020-10-23 11:43] LABS: ALBUMIN 4.1 g/dL (3.5-5.0); ALKALINE PHOSPHATASE 120 U/L (38-126); ANION GAP 6 (5-19); ASPARTATE AMINO TRANSFERASE 52 U/L (17-59); BILIRUBIN,DIRECT 0.3 mg/dL (0.0-0.4); BILIRUBIN,TOTAL 1.8 mg/dL (0.2-1.3); BLOOD UREA NITROGEN 8 mg/dL (7-20); CALCIUM 9.4 mg/dL (8.4-10.2); CARBON DIOXIDE 25 mmol/L (22-30); CHLORIDE 102 mmol/L (98-107); CHOLESTEROL 185.03 mg/dL (0-200); POTASSIUM 4.2 mmol/L (3.6-5.0); TOTAL PROTEIN 6.8 g/dL (6.3-8.2); TRIGLYCERIDES 125 mg/dL (<150); URIC ACID 5.2 mg/dL (3.5-8.5)
[2020-10-23 13:31] LABS: DIRECT LDL 110 mg/dL (<100)
[2020-10-23 14:48] LABS: GLUCOSE 426 mg/dL (75-110)
== END ==
LOC: CCC 10:14
PROVIDERS: ATTEND Family Medicine
DX: E11.8 Type 2 diabetes mellitus with unspecified complications (principal); L30.9 Dermatitis, unspecified
CPT/HCPCS: 36415; 80053; 80061; 81001; 83036; 83735; 84550; 85025